=== PATIENT | female | born 1940 | race Caucasian/White ===

== ENCOUNTER 2017-09-18 06:44 | Day surgery (SDC) | payer MEDICARE, BC ==
[2017-09-18] MEDS ORDERED: VITAMIN D31000 UNIT PO (07:32)
[2017-09-18] MEDS ORDERED: MECLIZINE HCL25 MG PO (07:32)
[2017-09-18 07:33] LABS: BASOPHILS 0.4 % (0-2); EOSINOPHILS 3.6 % (0-7); HEMATOCRIT 36.5 % (36.0-48.0); HEMOGLOBIN 11.7 g/dL (12-16); IMMATURE GRANULOCYTES 0.2 % (0-5); LYMPHOCYTES 37.1 % (15-50); MCHC 32.1 g/dL (31.0-37.0); MCV 90.3 fL (80.0-100.0); MEAN PLATELET VOLUME 10.8 fL (7.4-10.4); MONOCYTES 9.6 % (2-11); NEUTROPHILS 49.1 % (40-80); PLATELET COUNT 246 10x3/uL (130-400); RBC 4.04 10x6/uL (4.00-5.40); RDW 15.3 % (11.5-14.5); WBC 12.6 10x3/uL (4.8-10.8)
[2017-09-18] MEDS ORDERED: ZETIA10 MG PO (07:33)
[2017-09-18] MEDS ORDERED: PEPCID40 MG (07:33)
[2017-09-18] MEDS ORDERED: NORVASC2.5 MG ×2 (07:33→07:34)
[2017-09-18] MEDS ORDERED: VALIUM5 MG PO (07:35)
[2017-09-18] MEDS ORDERED: HYDRALAZINE HCL50 MG PO (07:35)
[2017-09-18] MEDS ORDERED: LEVOXYL25 MCG (07:36)
[2017-09-18] MEDS ORDERED: FUROSEMIDE40 MG (07:36)
[2017-09-18] MEDS ORDERED: CATAPRES0.1 MG PO (07:37)
[2017-09-18] MEDS ORDERED: GABAPENTIN100 MG PO (07:37)
[2017-09-18] MEDS ORDERED: PLAVIX75 MG PO (07:38)
[2017-09-18] MEDS ORDERED: BETAGAN 0.5% OPH5 ML EACH EYE (07:38)
[2017-09-18] MEDS ORDERED: BAYER CHEWABLE81 MG PO (07:39)
[2017-09-18] MEDS ORDERED: LANTUS SOL100 UNIT/1 (07:39)
[2017-09-18 07:41] LABS: ANION GAP 15.1 mmol/L (8-16); CARBON DIOXIDE 27.6 mmol/L (21.0-32.0); CREATININE - SERUM 3.8 mg/dL (0.6-1.3); POTASSIUM - SERUM 3.7 mmol/L (3.5-5.1)
[2017-09-18 07:50] VITALS: BMI 32.1
[2017-09-18 07:55] LABS: APTT 39.4 SECONDS (22.8-39.4)
[2017-09-18 08:07] LABS: INR 0.91 (0.85-1.17); PROTIME 12.1 SECONDS (11.6-15.0)
[2017-09-18] MEDS ORDERED: HYDROCODON-ACE1 EAC7 PO (15:56)
--- NOTE | 2017-09-18 16:26 | NUR ---
DR BRUSH CONSULTED ABOUT THE PATIENTS BP AND ORDERED DISCHARGE ON PACU SO THE PATIENT MAY RETURN TO OUTPATIENT AND RECEIVE HER REGULAR ORAL MEDICATION. THE PT PRE OP BP WAS 190/70. HYDRALIZINE 20MG WAS GIVEN IN RECOVERY.
--- NOTE | 2017-09-18 17:05 | NUR ---
PATIENT SITTING ON SIDE OF BED, RIGHT WRIST PIV DC'D WITH TIP INTACT. PATIENT WALKS AROUND ROOM WITHOUT DIZZINESS OR UNSTEADINESS. DAUGHTER BEGINS ASSISTING PATIENT TO DRESS IN PERSONAL CLOTHING
--- NOTE | 2017-09-18 17:50 | NUR ---
PATIENT DRESSED, SITTING ON SIDE OF BED, WITHOUT COMPLAINTS. DISCHARGE INSTRUCTIONS REVIEWED WITH PATIENT AND DAUGHTER. DISCHARGED HOME VIA WHEELCHAIR TO PRIVATE VEHICLE WITH DAUGHTER.
--- NOTE | 2017-09-26 14:25 | OP ---
PATIENT NAME: LIZ SUERO MEDICAL RECORD: [id number] LOCATION:[facility] ADMISSION DATE: SURGEON: DARIAN TAYLOR MD DATE OF OPERATION: 09/18/2017 REFERRING PHYSICIAN: Yoseph Perdomo MD PREOPERATIVE DIAGNOSES: Chronic kidney disease stage IV and diabetes mellitus. POSTOPERATIVE DIAGNOSES: Chronic kidney disease stage IV and diabetes mellitus. OPERATION PERFORMED: Creation of a left arm brachial artery to cephalic vein AV fistula. SURGEON: Darian Taylor MD ANESTHESIA: General with LMA per PRIMER INSPECTOR. PREOPERATIVE NOTE: Ms. Suero is a very nice 77-year-old white female, diabetic, from [place], [place]. She has diabetes and chronic kidney disease. She was referred to me by Dr. Perdomo for creation of dialysis access. DESCRIPTION OF PROCEDURE: Under general anesthesia with LMA per PRIMER INSPECTOR, in supine position, the patient was prepped and draped in a sterile manner. I applied a Brule drain as a proximal venous tourniquet and then nitroglycerin was applied topically to arm and forearm. Examination of the ultrasound demonstrated satisfactory brachial artery and median cubital and cephalic vein, also basilic vein. I decided to do a brachiocephalic fistula. A transverse incision was made and the vein was dissected from the surrounding tissues. 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 Several branches were divided between Vicryl ties and few small clips. The vein was ligated distally, transected, and bevelled; flushed with heparinized saline; and treated with topical papaverine. An atraumatic vascular clamp was applied. The brachial artery was exposed and controlled with doubly looped Silastic tapes. The artery was opened for a short distance and flushed proximally and distally with heparinized saline. An end-to-side vein to artery anastomosis was then performed with running 7-0 Prolene. When completed and the occluding loops and clamps were released, the suture line was hemostatic and excellent flow was established in the fistula. This was documented by a palpable thrill and by good continuous Doppler flow. The wound was irrigated with Ancef and gentamicin solution, infiltrated with 0.25% Marcaine without epinephrine, and closed with interrupted and inverted 3-0 Vicryl and running intracuticular 4-0 Monocryl. Dermabond glue and dressings of Maxorb Ag, Tegaderm, and Cavilon skin prep were applied. The patient then was awakened and taken to the recovery room in stable condition. Blood loss was trivial and unreplaced. All sponges, instruments, and needles were accounted for. No drain was used and no surgical specimen was submitted for histopathology. PLAN: I plan for Ms. Suero to go home to [place] today and continue her usual diet and medications. She is to shower as desired and wash over the waterproof plastic dressing until she returns to see me in my office and preferably will leave the dressing intact until then. An appointment is to be scheduled for her to see me next week and she is given a prescription for #10 tablets of [place] 5 OPERATIVE REPORT [id number] LIZ SUERO mg with 325 mg of acetaminophen one p.o. q. 4 hours p.r.n. pain. TRANSINT:[id number] Voice Confirmation ID: [id number] DOCUMENT ID: [id number] DARIAN TAYLOR MD at 1425 CC: YOSEPH PERDOMO MD [id number] DICTATION DATE: 09/18/17 1605 NURSING INFORMATION SYSTEMS COORDINATOR: 09/18/17 1641 [facility] 09/18/17 [facility] [address] [place] [address]
== END 2017-09-18 17:50 | disposition home or self-care (01) ==
LOC: D.OPS 06:44
PROVIDERS: Surgery
DX: E11.22 Type 2 diabetes mellitus with diabetic chronic kidney disease (principal); N18.4 Chronic kidney disease, stage 4 (severe); Z01.812 Encounter for preprocedural laboratory examination